=== PATIENT | male | born 1975 | race Caucasian/White ===

== ENCOUNTER 2018-12-04 14:55 | Emergency (ER) | payer BC ==
[2018-12-04] MEDS ORDERED: NS 500 ML IV ONE (15:13)
[2018-12-04] MEDS ORDERED: ONDANSETRON 4 MG/2 ML VIAL IVP ONE (15:13)
[2018-12-04] MEDS ORDERED: fentaNYL 100 MCG/2 ML INJ IVP ONE (15:13)
--- NOTE | 2018-12-04 15:13 | EDPHY ---
H & P Time Seen by Provider: 12/04/18 15:03 HPI/ROS: CHIEF COMPLAINT: Abdominal pain HISTORY OF PRESENT ILLNESS: Patient is a 43-year-old male presents emergency department with abdominal pain radiating to his back. His pain started approximately 2:00 p.m. It came on fairly suddenly. He initially had a "stomach cramp" but then this worsen. He now has severe pain that is periumbilical. It radiates to his back. He has no nausea vomiting. No lightheadedness or dizziness. No chest pain or shortness of breath. No dysuria frequency. No recent trauma. REVIEW OF SYSTEMS: 10 systems were reveiwed and are negative with the exception of the elements mentioned in the history of present illness. Past Medical/Surgical History: Negative Past surgical history: Negative Family history: No history of aneurysm or cardiac disease Social history: Patient does not smoke. He drinks alcohol occasionally Smoking Status: Never smoked Physical Exam: Vitals noted. 162/111, heart rate 72 GENERAL: Moderate acute distress, alert. HEENT: Eyes normal to inspection, normal pharynx, no signs of dehydration. NECK: Normal, supple. RESPIRATORY: Clear to auscultation bilaterally, no rales, rhonchi or wheezing. CVS: Regular rate and rhythm, no rubs, murmurs, or gallops. Patient has equal femoral pulses. ABDOMEN: Soft. Patient has periumbilical tenderness palpation with no rebound or guarding. There is a slight palpable mass at his umbilicus. No palpable bowel gas. BACK: Normal to inspection, no CVA tenderness. SKIN: Normal color, no rash, warm, dry. No pallor. EXTREMITIES: No pedal edema, no calf tenderness, no Homans sign or cords, no joint swelling. NEURO/PSYCH: Alert and oriented, normal mood and affect, normal motor sensory exam. Constitutional: Initial Vital Signs Temperature (C) 36.7 C 12/04/18 14:57 Heart Rate 72 12/04/18 14:57 Respiratory Rate 18 12/04/18 14:57 Blood Pressure 162/111 H 12/04/18 14:57 O2 Sat (%) 96 12/04/18 14:57 O2 Delivery Mode Room Air Allergies/Adverse Reactions: No Known Allergies Allergy (Unverified 12/04/18 14:56) Home Medications: Medication Instructions Recorded NK [No Known Home Meds] 12/04/18 Medical Decision Making - Diagnostics Imaging Results: Imaging Impressions Abdomen CT 12/04/18 15:13 Impression: 1. Omental stranding in the left hemiabdomen at the level of the umbilicus, likely representing omental inflammation/infarction. A fat-containing umbilical hernia contains some of the stranding. No obstruction. 2. Sclerotic lesion in the right iliac bone favored to represent a bone island. Findings and recommendations discussed with ASHLEY DOW at 1635 hour, . ED Course/Re-evaluation: In the emergency department I discussed possible etiologies with the patient. I answered all his questions. IV was placed. Patient was given normal saline 500 mL IV for hydration. He was given fentanyl 150 mcg IV for pain. He was given Zofran 4 mg IV for nausea. Laboratory studies and CT were ordered. Bedside ultrasound was performed. FAST negative. I was unable to fully visualize the abdominal aorta. Although the patient had no recent trauma, a fast exam was performed to look for or free fluid from a possible aorta dissection, aneurysm extrav. Procedure: Manual reduction of hernia. Gentle direct pressure was applied is over the palpable mass that could represent hernia. I subsequently felt the hernia reduced and slip through a defect in the abdominal wall. Patient tolerated the procedure well. Postprocedure the abdomen was soft and nontender. There is no palpable mass umbilicus. Patient's white count is mildly elevated at 10. Hematocrit is normal. Chemistry panel is unremarkable except for slightly low CO2. Patient's LFTs and lipase were normal. 16 30: The patient has no complaints. He denies abdominal pain. His abdomen is soft, nontender nondistended. CT of the abdomen pelvis: Please refer the dictated report. The patient has a small amount of omental stranding. No signs of obstruction. 17 20: The patient ambulated without difficulty. On recheck his abdomen was soft, nontender nondistended. The patient felt better. I discussed the case with Dr. Carvajal. He recommended discharge for the patient with close follow-up. The patient was given warnings prior to leaving. He will return with worsening symptoms. Differential Diagnosis: My differential includes but is not limited to dissection, aneurysm, hernia, strangulated hernia, incarcerated hernia, small-bowel obstruction, perforation, kidney stone - Data Points Laboratory Results: Laboratory Results 12/04/18 15:13 12/04/18 15:13 12/04/18 12/04/18 12/04/18 15:20 15:13 15:13 WBC RBC Hgb POC Hgb 15.0 gm/dL gm/dL (13.7-17.5) Hct POC Hct 44 % % (40-51) MCV MCH MCHC RDW Plt Count MPV Neut % (Auto) Lymph % (Auto) Dickenson % (Auto) Eos % (Auto) Baso % (Auto) Nucleat RBC Rel Count Absolute Neuts (auto) Absolute Lymphs (auto) Absolute Monos (auto) Absolute Eos (auto) Absolute Basos (auto) Absolute Nucleated RBC Immature Gran % Immature Gran # PT 12.8 SEC SEC (12.0-15.0) INR 1.00 (0.83-1.16) APTT 36.1 SEC SEC (23.0-38.0) POC Sodium 143 mEq/L mEq/L (135-145) Sodium 138 mEq/L mEq/L (135-145) POC Potassium 4.0 mEq/L mEq/L (3.3-5.0) Potassium 4.2 mEq/L mEq/L (3.5-5.2) POC Chloride 107 mEq/L mEq/L (97-110) Chloride 108 mEq/L mEq/L (97-110) Carbon Dioxide 21 mEq/l L mEq/l (22-31) POC Total CO2 22 mEq/L mEq/L (22-31) Anion Gap 9 mEq/L mEq/L (6-14) POC BUN 20 mg/dL mg/dL (7-23) BUN 20 mg/dL mg/dL (7-23) Creatinine 0.9 mg/dL mg/dL (0.7-1.3) POC Creatinine 0.9 mg/dL mg/dL (0.7-1.3) Estimated GFR > 60 Glucose 105 mg/dL H mg/dL (70-100) POC Glucose 105 mg/dL H mg/dL (70-100) Calcium 9.8 mg/dL mg/dL (8.5-10.4) Total Bilirubin 0.5 mg/dL mg/dL (0.1-1.4) Conjugated Bilirubin 0.4 mg/dL mg/dL (0.0-0.5) Unconjugated Bilirubin 0.1 mg/dL mg/dL (0.0-1.1) AST 19 IU/L IU/L (17-59) ALT 33 IU/L IU/L (21-72) Alkaline Phosphatase 64 IU/L IU/L (38-126) Total Protein 7.5 g/dL g/dL (6.3-8.2) Albumin 4.1 g/dL g/dL (3.5-5.0) Lipase 119 IU/L IU/L (23-300) 12/04/18 15:13 WBC 9.99 10^3/uL H 10^3/uL (3.80-9.50) RBC 4.95 10^6/uL 10^6/uL (4.40-6.38) Hgb 15.4 g/dL g/dL (13.7-17.5) POC Hgb Hct 44.1 % % (40.0-51.0) POC Hct MCV 89.1 fL fL (81.5-99.8) MCH 31.1 pg pg (27.9-34.1) MCHC 34.9 g/dL g/dL (32.4-36.7) RDW 13.4 % % (11.5-15.2) Plt Count 300 10^3/uL 10^3/uL (150-400) MPV 11.0 fL fL (8.7-11.7) Neut % (Auto) 60.7 % % (39.3-74.2) Lymph % (Auto) 27.5 % % (15.0-45.0) Dickenson % (Auto) 8.0 % % (4.5-13.0) Eos % (Auto) 3.0 % % (0.6-7.6) Baso % (Auto) 0.5 % % (0.3-1.7) Nucleat RBC Rel Count 0.0 % % (0.0-0.2) Absolute Neuts (auto) 6.06 10^3/uL 10^3/uL (1.70-6.50) Absolute Lymphs (auto) 2.75 10^3/uL 10^3/uL (1.00-3.00) Absolute Monos (auto) 0.80 10^3/uL 10^3/uL (0.30-0.80) Absolute Eos (auto) 0.30 10^3/uL 10^3/uL (0.03-0.40) Absolute Basos (auto) 0.05 10^3/uL 10^3/uL (0.02-0.10) Absolute Nucleated RBC 0.00 10^3/uL 10^3/uL (0-0.01) Immature Gran % 0.3 % % (0.0-1.1) Immature Gran # 0.03 10^3/uL 10^3/uL (0.00-0.10) PT INR APTT POC Sodium Sodium POC Potassium Potassium POC Chloride Chloride Carbon Dioxide POC Total CO2 Anion Gap POC BUN BUN Creatinine POC Creatinine Estimated GFR Glucose POC Glucose Calcium Total Bilirubin Conjugated Bilirubin Unconjugated Bilirubin AST ALT Alkaline Phosphatase Total Protein Albumin Lipase Medications Given: Discontinued Medications Fentanyl (Sublimaze) 150 mcg IVP EDNOW ONE Stop: 12/04/18 15:14 Last Admin: 12/04/18 15:28 Dose: 150 mcg Sodium Chloride (Ns) 500 mls @ 0 mls/hr IV EDNOW ONE; Wide Open PRN Reason: Protocol Stop: 12/04/18 15:14 Last Admin: 12/04/18 15:28 Dose: 500 mls Ondansetron HCl (Zofran) 4 mg IVP EDNOW ONE Stop: 12/04/18 15:14 Last Admin: 12/04/18 15:28 Dose: 4 mg Point of Care Test Results: Chemistry 12/04/18 15:20 POC Sodium 143 mEq/L mEq/L (135-145) POC Potassium 4.0 mEq/L mEq/L (3.3-5.0) POC Chloride 107 mEq/L mEq/L (97-110) POC Total CO2 22 mEq/L mEq/L (22-31) POC BUN 20 mg/dL mg/dL (7-23) POC Creatinine 0.9 mg/dL mg/dL (0.7-1.3) POC Glucose 105 mg/dL H mg/dL (70-100) ISTAT H&H 12/04/18 15:20 POC Hgb 15.0 gm/dL gm/dL (13.7-17.5) POC Hct 44 % % (40-51) Departure - Departure Disposition: Home, Routine, Self-Care Clinical Impression: Umbilical hernia, incarcerated Abdominal pain Qualifiers: Abdominal location: periumbilical Qualified Code(s): R10.33 - Periumbilical pain Condition: Good Instructions: Umbilical Hernia (ED) Additional Instructions: Return with increasing abdominal pain, fever, vomiting or any other concerns. Referrals: Andre Carvajal MD [Medical Doctor] - 5-7 days, call for appt.
[2018-12-04 15:23] LABS: PLATELET COUNT 300 10^3/uL (150-400)
[2018-12-04] MEDS ORDERED: IOPAMIDOL (ISOVUE-300) 100 ML BTL ONE (15:29)
[2018-12-04 15:34] LABS: PROTIME(PATIENT) 12.8 SEC (12.0-15.0)
[2018-12-04 17:41] VITALS: BP 141/89
== END 2018-12-04 17:41 | disposition home or self-care (01) ==
DX: K42.0 Umbilical hernia with obstruction, without gangrene (principal); E86.9 Volume depletion, unspecified
CPT/HCPCS: 82435-PO; 82565-PO; 82947-PO; 84132-PO; 84295-PO; 84520-PO; 85014-ER; 96374; J2405; J3010; Q9967